=== PATIENT | female | born 1960 | race African-American/Black ===

== ENCOUNTER 2024-08-29 08:14 | Emergency (ER) | payer MEDICAID, OTHER ==
[~2024-08-29] VITALS: Ht 162.6 cm; Wt 45.4 kg
[2024-08-29 08:18] VITALS: BP 103/40; PULSE 89; RESP 15; TEMP 36.4; O2SAT 100; O2SAT 99
== END 2024-08-29 09:41 | disposition home or self-care (01) ==
LOC: ER 08:14
DX: Z11.1 Encounter for screening for respiratory tuberculosis (principal); Z98.890 Other specified postprocedural states; Z86.59 Personal history of other mental and behavioral disorders
CPT/HCPCS: 71046; 99283